=== PATIENT | female | born 1990 | race Hispanic/Latino ===

== ENCOUNTER 2018-05-14 10:10 | Emergency (ER) | payer OTHER ==
[2018-05-14] MEDS ORDERED: FAMOTIDINE 20MG TAB 20 MG TAB ONE (11:18)
[2018-05-14] MEDS ORDERED: DIPHENHYDRAMINE HCL 25 MG CAPSULE ONE (11:19)
[2018-05-14] MEDS ORDERED: PREDNISONE 20 MG TABLET ONE (11:19)
== END 2018-05-14 11:38 | disposition home or self-care (01) ==
LOC: EDH 10:10
DX: L50.0 Allergic urticaria (principal); L29.9 Pruritus, unspecified
CPT/HCPCS: 81025; 99284; Q0163

== ENCOUNTER 2019-03-26 16:17 | Emergency (ER) | payer MEDICAID, OTHER ==
[2019-03-26 17:11] LABS: BASOPHILS % (AUTO) 0.5 % (0.0-5.0); EOSINOPHILS % (AUTO) 3.3 % (0.0-8.0); HEMATOCRIT 32.3 % (36-48); LYMPHOCYTES % (AUTO) 25.6 % (21.0-51.0); MEAN CORPUSCULAR HEMOGLOBIN 23.7 pg (27.0-33.0); MEAN CORPUSCULAR HGB CONC 30.7 g/dL (32.0-36.0); MEAN CORPUSCULAR VOLUME 77.5 fL (79-99); MONOCYTES % (AUTO) 7.7 % (3.0-13.0); NEUTROPHILS % (AUTO) 62.5 % (40.0-77.0); PLATELET COUNT (AUTO) 270 K/uL (130-400); RED BLOOD CELL COUNT(AUTO) 4.17 MIL/uL (4.00-5.50); RED CELL DISTRIBUTION WIDTH 14.9 % (11.0-15.5); WHITE BLOOD COUNT (AUTO) 5.5 K/uL (4.8-10.8)
[2019-03-26 17:28] LABS: CREATININE 0.8 mg/dL (0.5-1.5)
[2019-03-26 17:38] LABS: ALBUMIN 3.4 g/dL (3.5-5.0); BILIRUBIN,TOTAL 0.7 mg/dL (0.2-1.0); TOTAL PROTEIN, SERUM 7.4 g/dL (6.0-8.3)
[2019-03-26 18:39] LABS: APPEARANCE,URINE SL CLOUDY (CLEAR); BILIRUBIN,URINE NEGATIVE (NEGATIVE); COLOR,URINE YELLOW (YELLOW); GLUCOSE, URINE (UA) NEGATIVE (NEGATIVE); KETONES,URINE NEGATIVE (NEGATIVE); LEUKOCYTE ESTERASE ,URINE LARGE (NEGATIVE); NITRATE,URINE NEGATIVE (NEGATIVE); OCCULT BLOOD,URINE NEGATIVE (NEGATIVE); PROTEIN,URINE NEGATIVE (NEGATIVE)
[2019-03-26 18:49] LABS: HCG,QUAL RESULT NEGATIVE (NEGATIVE)
[2019-03-26] MEDS ORDERED: NAPROXEN 500 MG TABLET ONE (19:04)
[2019-03-26] MEDS ORDERED: NITROFURANTOIN MONOHYD/M-CRYST 100 MG CAPSULE PO ONE (19:04)
[2019-03-26 19:07] LABS: BACTERIA,URINE Moderate /HPF (None Seen); RBC,URINE 0-1 /HPF (0-1); SQUAMOUS EPITHELIAL CELL,UR TNTC /HPF (0-2)
== END 2019-03-26 19:21 | disposition home or self-care (01) ==
LOC: EDH 16:17
DX: N39.0 Urinary tract infection, site not specified (principal); Z98.890 Other specified postprocedural states
CPT/HCPCS: 36415; 80053; 81001; 81025; 83690; 84702; 85025